=== PATIENT | female | born 1975 | race African-American/Black ===

== ENCOUNTER 2024-10-07 13:39 | Emergency (ER) | payer OTHER ==
[~2024-10-07] VITALS: Ht 162.6 cm; Wt 70.0 kg
[~2024-10-07 13:39] MED LIST: PROIN3
[2024-10-07 13:45] VITALS: BP 136/96; PULSE 89; RESP 16; TEMP 98.3; O2SAT 99
[2024-10-07] MEDS: KETOROLAC 15MG/ML VIAL IM ONE (15:52)
[2024-10-07] MEDS: CYCLOBENZAPRINE 10MG TABLET PO ONE (15:52)
[2024-10-07] MEDS: LIDOCAINE 5% PATCH TOP SCH (15:55)
[2024-10-07] MEDS ORDERED: TETANUS, DIPHTHERIA, PERTUSSIS VAC/PF 0.5ML (>10YR OLD) IM ONE (17:00)
[2024-10-07] MEDS ORDERED: LIDO700A15 TP (17:32)
[2024-10-07] MEDS ORDERED: NAPR-1176 MT (17:32)
[2024-10-07] MEDS ORDERED: LIDOCAINE 5% PATCH TOP SCH (22:45)
== END 2024-10-07 18:24 | disposition home or self-care (01) ==
LOC: ER 13:39
DX: S13.4XXA Sprain of ligaments of cervical spine, initial encounter (principal); S20.311A Abrasion of right front wall of thorax, initial encounter; M25.521 Pain in right elbow; M54.2 Cervicalgia; V89.2XXA Person injured in unspecified motor-vehicle accident, traffic, initial encounter; Y93.89 Activity, other specified; Y92.89 Other specified places as the place of occurrence of the external cause; Y99.8 Other external cause status
CPT/HCPCS: 99283; 81025; 73090; 96372; J1885